=== PATIENT | male | born 1935 | race Caucasian/White ===

== ENCOUNTER 2019-10-14 01:15 | Day surgery (SDC) | payer MEDICARE, SELFPAY ==
[2019-10-08 08:04] VITALS: BMI 27.9
--- NOTE | 2019-10-14 11:38 | WPDHPUPDATE1 ---
History and Physical Update Update Date/Time: 10/14/19 11:38 History and Physical has been reviewed, including an updated exam of the patient. There are NO changes in the patient's condition. Risks, benefits, and alternatives have been discussed and questions answered. Patient agrees to proceed with procedure.
--- NOTE | 2019-10-14 11:44 | PM.HPGS ---
History of Present Illness History of Present Illness Consent: Risks, benefits, and alternatives have been discussed and questions answered. Patient agrees to proceed with procedure. Chief complaint: Blood In Urine Narrative: Bubba Wick is a 84 year old male with long history of recurrent bladder tumors dating back to 1993. Presents for surveillance cystoscopy. Review of Systems Cardiovascular: Cardiovascular: Denies chest pain, Denies lightheadedness, Denies palpitations and Denies dyspnea Respiratory: Respiratory: Denies dyspnea Gastrointestinal: Gastrointestinal: Denies diarrhea, Denies nausea and Denies vomiting Genitourinary: Genitourinary: Denies hematuria and Denies dysuria Endocrine: Endocrine: Denies palpitations PMFSH Social History Social History Smoking status: Current every day smoker Alcohol intake: never Gender identity (if verbalized by the patient): Male Meds Home Medications and Allergies Home Medications Medication Instructions Recorded Confirmed Type B complex with C 20-folic acid 1 cap PO DAILY 10/08/19 10/08/19 History [Renal Caps] allopurinol 200 mg PO DAILY 10/08/19 10/08/19 History aspirin [Aspir-81] 81 mg PO DAILY 10/08/19 10/08/19 History calcitriol 0.25 mcg PO 3XW 10/08/19 10/08/19 History calcium acetate 667 mg PO TID 10/08/19 10/08/19 History cyanocobalamin (vitamin B-12) 1,000 mcg SUBCUT ONCE 10/08/19 10/08/19 History ergocalciferol (vitamin D2) 50,000 unit PO WEEKLY 10/08/19 10/08/19 History [Vitamin D2] furosemide 80 mg PO DAILY 10/08/19 10/08/19 History gabapentin 300 mg PO BID 10/08/19 10/08/19 History insulin degludec-liraglutide 36 unit SUBCUT DAILY 10/08/19 10/08/19 History [Xultophy 100/3.6] levothyroxine [Levoxyl] 150 mcg PO DAILY 10/08/19 10/08/19 History lisinopril 20 mg PO DAILY 10/08/19 10/08/19 History magnesium 400 mg PO DAILY 10/08/19 10/08/19 History ranitidine HCl 150 mg PO DAILY PRN 10/08/19 10/08/19 History Allergies Allergy/AdvReac Type Severity Reaction Status Date / Time morphine AdvReac Intermediate IMMEDIATE Verified 10/08/19 08:03 N&V MEPERIDINE HCL AdvReac Intermediate IMMEDIATE Uncoded 10/08/19 08:03 NAUSEA/VOMITING Exam Const: General: no acute distress Resp: Effort & Inspection: normal respiratory effort GI: Inspection: non-distended GI Palp: No abdominal tenderness and No Guarding due to palpation present (GI) Auscultation: normal bowel sounds Assessment and Plan Assessment and plan (1) History of bladder cancer: Code(s): Z85.51 - Personal history of malignant neoplasm of bladder Status: Acute Assessment and Plan: Cystoscopy
[2019-10-14] MEDS: SODIUM CHLORIDE 0.9% IV 500 ML 30 ML IV CONT (13:45)
[2019-10-14 13:55] VITALS: BP 137/85; PULSE 62; RESP 18; TEMP 36; O2SAT 97
[2019-10-14 13:56] LABS: Glucose Point of Care 128 (65-105)
[2019-10-14 14:00] LABS: Partial Thromboplastin Time 25.5 SECONDS (22.3-36.8); Prothrombin Time 12.6 Seconds (11.1-14.7)
[2019-10-14 14:01] LABS: Blood Urea Nitrogen 95 mg/dL (9-20); Calcium 9.4 mg/dL (8.4-10.2); Carbon Dioxide 26 mmol/L (22-30); Chloride 99 mmol/L (98-107); Estimated CRCL calculation 7 ml/min; Estimated Glomerular Filt Rate 7; Glucose 147 mg/dL (75-110); Potassium 4.1 mmol/L (3.4-5.0); Sodium 137 mmol/L (137-145)
--- NOTE | 2019-10-14 14:01 | WPDANESEPPF ---
Anes - Initial Pre Proc Eval Procedure: Operation Date: 10/14/19 15:30 Proposed Procedures p Flexible Cystoscopy - Mo Wiggins MD Date/Time: 10/14/19 14:01 Surgeon: Mo Wiggins MD Pre Op Diagnosis: Blood In Urine Patient Data Age: 84 Gender: M Height: 5 ft 10 in Weight: 88.7 kg Last Vital Signs Temp 36.0 C L 10/14/19 13:55 Pulse 62 10/14/19 13:55 Resp 18 10/14/19 13:55 BP 137/85 10/14/19 13:55 Pulse Ox 97 10/14/19 13:55 Allergies Allergy/AdvReac Type Severity Reaction Status Date / Time morphine AdvReac Intermediate IMMEDIATE Verified 10/14/19 13:24 N&V MEPERIDINE HCL AdvReac Intermediate IMMEDIATE Uncoded 10/14/19 13:24 NAUSEA/VOMITING Home Medications Medication Instructions Recorded Confirmed Type B complex with C 20-folic acid 1 cap PO DAILY 10/08/19 10/08/19 History [Renal Caps] allopurinol 200 mg PO DAILY 10/08/19 10/08/19 History aspirin [Aspir-81] 81 mg PO DAILY 10/08/19 10/08/19 History calcitriol 0.25 mcg PO 3XW 10/08/19 10/08/19 History calcium acetate 667 mg PO TID 10/08/19 10/08/19 History cyanocobalamin (vitamin B-12) 1,000 mcg SUBCUT ONCE 10/08/19 10/08/19 History ergocalciferol (vitamin D2) 50,000 unit PO WEEKLY 10/08/19 10/08/19 History [Vitamin D2] furosemide 80 mg PO DAILY 10/08/19 10/08/19 History gabapentin 300 mg PO BID 10/08/19 10/08/19 History insulin degludec-liraglutide 36 unit SUBCUT DAILY 10/08/19 10/08/19 History [Xultophy 100/3.6] levothyroxine [Levoxyl] 150 mcg PO DAILY 10/08/19 10/08/19 History lisinopril 20 mg PO DAILY 10/08/19 10/08/19 History magnesium 400 mg PO DAILY 10/08/19 10/08/19 History ranitidine HCl 150 mg PO DAILY PRN 10/08/19 10/08/19 History Laboratory Tests 10/14/19 10/14/19 10/14/19 13:45 13:45 13:54 PT 12.6 Seconds Seconds (11.1-14.7) INR 1.0 APTT 25.5 SECONDS SECONDS (22.3-36.8) Sodium Pending Potassium Pending Chloride Pending Carbon Dioxide Pending BUN Pending Creatinine Pending Estim Creat Clear Calc Pending Estimated GFR Pending Glucose Pending POC Capillary Glucose 128 mg/dl H mg/dl (65-105) Calcium Pending Patient hx anesthesia problems: none Family hx anesthesia problems: post op nausea/vomiting PMFSH Past Medical History Medical History (Updated 10/14/19 @ 14:03 by Benjamin Anderson MD) Afib Bladder cancer Chronic renal failure Diabetes Hyperlipidemia Hypertension Social History Social History Smoking status: Current every day smoker Alcohol intake: never Gender identity (if verbalized by the patient): Male Anes - Eval Final PreProcedure Day of Procedure 10/14/19 14:01 Patient weight: overweight Heart: regular rate and rhythm Lungs: decreased breath sounds Airway: Mallampati scale class II Neurological: other (alert hard of hearing) Last oral intake: >/= 8 hours ASA classification: IV Emergent: no Anesthetic plan: proceed Anesthesia type and monitoring: general LMA and standard monitoring Informed Consent: The patient's anesthetic plan and its attendant risks and benefits were discussed with the patient/family/POA. Questions were solicited and answers provided to the satisfaction of the patient/family/POA.
[2019-10-14] MEDS: ceFAZolin 2 GM/D5W 50 ML 2 GM/50 ML BAG IVPB (14:56)
[2019-10-14] MEDS: LIDOCAINE HCL 2% GEL UROJET 10 ML PKG MUCOUS MEM (15:11)
--- NOTE | 2019-10-14 15:30 | PM.PROC ---
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 TURBT (small, 3cm). 2. Biopsy prostatic urethra. Description of procedure: The patient was brought to the operative suite where he is prepped and draped in a routine sterile fashion while in the dorsal lithotomy position. This is done after the uneventful administration of systemic sedation. 2% Xylocaine jelly is introduced intraurethrally and allowed to stand for an appropriate period of time. A 24F resectoscope sheath was placed in the bladder and the bladder is circumferentially inspected carefully. [He has an area suspicuous for recurrent urothelial neoplasm in the posterior bladder wall measuring 2cm. Using a loop electrode this area is resected and the base an periphery cauterized with a rollerball. 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 I resected this site with a loop electorde, as well. This second area is, likewise, cauterized. The remainder of the bladder and urethral were endoscopically normal. I'll plan catehter drainage with an 18F catheter that can likely be removed before he goes home. The patient is taken to the recovery room having tolerated this procedure well. Anesthesia: MAC Surgeon: Mo Wiggins MD Estimated blood loss (mL): 20 Drains: Yes (18F Wilkes) Packing: No Pathology: yes Complications: No immediate complications Condition: stable Disposition: PACU
[2019-10-14 15:35] VITALS: BP 96/67; PULSE 76; RESP 20; O2SAT 92
[2019-10-14 16:06] VITALS: BP 123/74; PULSE 102
[2019-10-14 16:20] VITALS: BP 138/72; PULSE 75
== END 2019-10-14 16:24 | disposition home or self-care (01) ==
PROVIDERS: Anesthesiology; PCP Physical Medicine & Rehabilitation; Visit Provider Urology
PROC: 0TJB8ZZ Inspection of Bladder, Via Natural or Artificial Opening Endoscopic (ICD-10-PCS; CPT 52000; principal; 2019-10-14 15:30)
DX: C67.4 Malignant neoplasm of posterior wall of bladder (principal); I48.91 Unspecified atrial fibrillation; I12.9 Hypertensive chronic kidney disease with stage 1 through stage 4 chronic kidney disease, or unspecified chronic kidney disease; N18.9 Chronic kidney disease, unspecified; E11.22 Type 2 diabetes mellitus with diabetic chronic kidney disease; E78.5 Hyperlipidemia, unspecified; Z79.82 Long term (current) use of aspirin; Z79.4 Long term (current) use of insulin
CPT/HCPCS: 52234; 52204; 36415; 80048; 85610; 85730; 88305; A9270; J0690; J2405; J2704; J3010; J7040